=== PATIENT | female | born 1985 | race Caucasian/White ===

== ENCOUNTER 2017-03-27 16:32 | Emergency (ER) | payer MEDICAID, OTHER ==
[2017-03-27 17:26] VITALS: BP 128/80
--- NOTE | 2017-03-29 12:07 | ER ---
Date of Service: 03/27/2017 SUBJECTIVE: Trini presents to the emergency room with complaints of pain to the ball of her foot. The patient states that she had done a cartwheel and when landing the cartwheel injured the ball of her left foot. She states that the discomfort was located just proximal to the metatarsophalangeal joint. She states that she is not experiencing any discomfort to the remainder of the foot or to the ankle, lower leg, or knee. She denies any injury other than was isolated to the left foot. PAST MEDICAL HISTORY: 1. Depression. 2. Bipolar disorder. 3. Anxiety. 4. Migraine headaches. 5. GERD. 6. Hypertension. 7. Recent hospitalization at [facility] for suicidal and homicidal ideation and depression. MEDICATIONS: 1. Hydroxyzine. 2. BuSpar. 3. Omeprazole. 4. Mirtazapine. 5. Mobic. 6. Acetaminophen. 7. Prazosin. 8. Omeprazole. 9. Venlafaxine. 10.Topamax. 11.Phenergan. 12.Zanaflex. ALLERGIES: To gabapentin. REVIEW OF SYSTEMS: Denies any complaints other than pain to the ball of her left foot. Initially, the patient stated that she did not have any pain to the rest of her foot, ankle, lower leg, knee, and denies trauma to any other areas. PHYSICAL EXAMINATION: General: This is a 31-year-old female patient, who is in no acute distress. She is in the room with her friend laughing about the event. Vital Signs: Blood pressure is 128/80, heart rate is 91, temperature is 36.2, respiratory rate 16. Skin: Warm, pink, and dry. Musculoskeletal: The patient has minimal discomfort on palpation and manipulation of the ball of the foot and of the left great toe. No obvious crepitus or deformity noted. She initially had no other pain to the remainder of her foot, but then began experiencing discomfort in the area of the fifth metatarsal. No trauma noted to the ankle or lower leg or knee. Neurovascular: Circulation, sensation, and motor function are all within normal limits in distal portion of the extremity. RADIOGRAPHIC DATA: The radiologist favors a fracture to the midportion of the 4th metatarsal. She had no discomfort in the ball of the foot where she was initially complaining of pain. No other pathology was noted. ASSESSMENT: 1. Possible fracture to 4th metatarsal. 2. Sprain of left great toe. PLAN: The patient will be discharged. I did place her in a postop shoe. I advised her that she should follow up for repeat radiographs in 7-10 days to get a better picture of what specifically is going on. Again, she did not complain of any pain whatsoever in the area of the 4th metatarsal and complained of pain after she was told what the radiologist had noted. He did suggest that this was a possible fracture and did suggest clinical correlation, which initially did not match the radiographic findings. Again, we will have her follow up in the clinic for repeat radiographs in approximately 1 week. We will keep her in a postop shoe until then and treat it as though there is an acute fracture. All questions were answered. MWK: 03/29/2017 11:33:24 MODL: 03/29/2017 11:58:34 /[id number]
== END 2017-03-27 18:10 | disposition home or self-care (01) ==
LOC: VM.ED 16:32
DX: S93.502A Unspecified sprain of left great toe, initial encounter (principal); X58.XXXA Exposure to other specified factors, initial encounter
CPT/HCPCS: 73630-LT; 99283

== ENCOUNTER 2017-06-13 19:35 | Emergency (ER) | payer MEDICAID ==
[2017-06-13] MEDS ORDERED: Ketorolac 60 MG/2 ML SDV IM ONE (20:02)
[2017-06-13 20:13] VITALS: BP 122/81
[2017-06-13] MEDS ORDERED: Sodium Chloride 0.9% 10 ML Syringe FLUSH PRN (20:52)
[2017-06-13] MEDS ORDERED: Sodium Chloride 0.9% 1,000 ML IV ONE (20:54)
[2017-06-13] MEDS ORDERED: Morphine 4 MG/ML Syringe IVPUSH ONE (20:54)
[2017-06-13 20:57] LABS: CHLORIDE,CL 106 mmol/L (98-107); SODIUM,NA 142 mmol/L (136-145)
[2017-06-13] MEDS ORDERED: Iopamidol 612 MG/ML 100 ML Bottle IVPUSH ONE (21:15)
[2017-06-13] MEDS ORDERED: Sodium Chloride 0.9% 100 ML IV SCH (21:15)
[2017-06-13] MEDS ORDERED: Take Home: Acetaminophen/HYDROcodone 325-5 MG, 5 Tab Pack PO ONE (22:58)
--- NOTE | 2017-06-14 00:51 | ER ---
Date of Service: 06/13/2017 SUBJECTIVE: Trini presents to the emergency room with complaints of right upper quadrant abdominal pain. The patient states that she has been experiencing this discomfort for approximately 2 hours prior to coming to the ER. The patient states that she has never experienced this discomfort in the past. She states that she has not noticed any fer-colored stools or dark urine. The patient states that the discomfort is not radiating into either one of her shoulders. She states that her last intake of food was approximately noon today. The patient states that she has not been experiencing any fever or chills. She states her last menstrual period was approximately 1 week ago. She states that she has not been experiencing any dysuria or blood in her stools. PAST MEDICAL HISTORY: 1. Frequent utilization of the ER for migraine headaches. 2. Ventral hernia. 3. Anxiety. 4. Bipolar disorder. 5. Depression. 6. GERD. 7. Hypertension. 8. History of suicidal and homicidal ideation requiring psychiatric facility admission. MEDICATIONS: 1. Zanaflex 4 mg p.o. b.i.d. 2. Atarax 50 mg p.o. b.i.d. 3. Buspirone 15 mg p.o. b.i.d. 4. Effexor XR 24 hour 2 tablets p.o. at bedtime. 5. Topamax 100 mg p.o. b.i.d. 6. Promethazine 25 mg p.o. q.4 hours p.r.n. 7. Minipress 2 mg p.o. at bedtime. 8. Omeprazole 20 mg daily. 9. Mirtazapine 15 mg p.o. daily. 10.Mobic 7.5 mg p.o. daily. 11.Acetaminophen 500 mg p.o. q.i.d. p.r.n. ALLERGIES: Gabapentin. REVIEW OF SYSTEMS: General: No fever or chills. HEENT: No sore throat, rhinorrhea, congestion. Respiratory: No shortness of breath. Cardiac: Denies any substernal chest pain. No jaw, arm, neck, or back pain. GI: Please see history of present illness. No melena, hematochezia, or hematemesis. : Denies any dysuria. Musculoskeletal: No myalgias or arthralgias. Neurologic: No fainting, blackouts, lightheadedness. PHYSICAL EXAMINATION: General: This is a 32-year-old female patient, who is in no acute distress. Vital Signs: Blood pressure is 122/81, heart rate is 104, temperature is 37.4, respiratory rate 16, O2 saturations 99%. Skin: Warm, pale, and dry. Mouth: Oral mucosa is moist. Lungs: Clear to auscultation. Heart: Regular rate and rhythm. Abdomen: Soft, mildly tender in the right upper quadrant. There are no masses. She does have some rebound tenderness. There is no hepatosplenomegaly noted. Abdomen is obese. Extremities: Without edema. Neurologic: The patient is alert and oriented, answers all questions appropriately. Her speech is fluent. Her gait is within normal limits. LABORATORY DATA: WBCs 12.3, hemoglobin is 14.4, platelets are 261. Coags; PT is 10.4, INR is 1.0. Chemistry; sodium is 142, potassium is 3.6, chloride is 106, bicarb is 27, BUN is 8, creatinine is 0.9. Creatinine clearance is 65.65. GFR is greater than 60. Glucose is 102, calcium is 8.3, corrected calcium is 8.78. Total bilirubin is 0.4, AST is 35, ALT is 73. Alkaline phosphatase is 90, total protein is 7.7, albumin is 3.4, lipase is 157. Urinalysis revealed a specific gravity 1.030, pH was 5.0, negative for protein, glucose, ketones, occult blood, nitrites, bilirubin, and a leukocyte esterase. Abdomen complete series was obtained. There was no evidence of any acute pathology. On obtaining the patient's laboratory studies, a decision was made to do a CT scan of the patient's abdomen and pelvis. The patient did have evidence of thickening of the gallbladder wall and neural edema at the gallbladder neck as well as presence of gallstones within the gallbladder. There was no evidence of any free fluid or other inflammatory findings consistent with cholangitis. EMERGENCY ROOM COURSE: IV access was established. She was given a liter of normal saline IV. She was given Toradol 60 mg IM and morphine 4 mg IV. At the time of discharge, pain was down to 4. She remained stable under my care in the emergency room. ASSESSMENT: Acute cholecystitis and cholelithiasis. PLAN: The patient will be discharged. I did speak with Dr. Ahmeti, the general surgeon on-call at [facility] in [place]. He stated that the best bet would be to get her scheduled for a General Surgery consult on an outpatient basis tomorrow. We will work with [facility] to see if this can be done or to see if she will need to follow up with Dr. Neves who she identifies as her primary care provider. We will start the patient on Lortab 5/325 with instructions to take 1 to 2 every 4-6 hours as needed for pain. She can also take ibuprofen 600 mg every 6 hours but should not be taking her meloxicam at the same time. Dr. Alvarez advised the patient to go to [facility] on her own if her pain becomes unrelenting and is not palliated with oral narcotic analgesics. He stated that if they were unable to get her pain under control, they may do a semi-emergent cholecystectomy at [place]. The patient was given extensive list of foods to avoid including milk chews, carlos ham, and other fat containing foods. The patient stated that she would not be able to comply with this list of foods as "that is pretty much all the food I eat." She was advised to eat foods high in carbohydrates, fruits, vegetables, and to avoid fatty foods. All questions were answered. MWK: 06/13/2017 23:23:51 MODL: 06/14/2017 00:43:51 /[id number]
== END 2017-06-13 23:11 | disposition home or self-care (01) ==
LOC: VM.ED 19:35
DX: K80.00 Calculus of gallbladder with acute cholecystitis without obstruction (principal); F41.9 Anxiety disorder, unspecified; F32.9 Major depressive disorder, single episode, unspecified; K21.9 Gastro-esophageal reflux disease without esophagitis; I10 Essential (primary) hypertension; Z79.899 Other long term (current) drug therapy
CPT/HCPCS: 36415; 74022; 74177; 80053; 81001; 83690; 85025; 85610; 96365; 96372; 96375; 99284; A9270; J1885; J2270; J7030; J7050; Q9967

== ENCOUNTER 2018-03-26 08:43 | Emergency (ER) | payer MEDICAID ==
[2018-03-26 09:01] VITALS: BP 134/85
--- NOTE | 2018-03-26 09:24 | EDM.PDOC ---
ED HPI GENERAL MEDICAL PROBLEM - General Chief Complaint: Upper Extremity Injury/Pain Stated Complaint: ANIMAL BITE Time Seen by Provider: 03/26/18 09:09 Source of Information: Reports: Patient History Limitations: Reports: No Limitations - History of Present Illness INITIAL COMMENTS - FREE TEXT/NARRATIVE: Patient comes to the ED this morning after being bitten by a cat. She was trying to put it in the kennel. Not her original cat, but has been in the home since getting it in December. She states she was given the cat when it's original dedicated owner operator was sent to retirement. Bite to the right index finger. She is able to move it. Onset: Today, Sudden Location: Reports: Lower Extremity, Right Severity: Mild Associated Symptoms: Reports: No Other Symptoms Right 2-Index finger Pain Score (Numeric/FACES): 10 - Related Data Allergies Allergy/AdvReac Type Severity Reaction Status Date / Time gabapentin Allergy Headache Verified 06/13/17 19:56 levetiracetam [From [facility]] Allergy Hives Verified 03/26/18 08:56 Home Meds: Home Meds Topiramate [Topamax] 100 mg pe PO BID 01/20/15 [History] Venlafaxine [Effexor XR 24 Hr] 2 tab PO BEDTIME 08/19/15 [History] Omeprazole 20 mg PO ACBRK #30 cap.cr 10/27/15 [Rx] Prazosin [Minpress] 2 mg PO BEDTIME 09/16/16 [History] Acetaminophen 500 mg PO QID PRN 10/14/16 [History] Meloxicam [Mobic] 7.5 mg PO DAILY 10/14/16 [History] Promethazine [Phenergan] 25 mg PO Q4HR PRN 10/14/16 [History] tiZANidine [Zanaflex] 4 mg PO BID 10/14/16 [History] Mirtazapine 15 mg PO DAILY 03/27/17 [History] Omeprazole 20 mg DAILY 03/27/17 [History] busPIRone [Buspar] 15 mg BID 03/27/17 [History] hydrOXYzine HCl [Atarax] 50 mg BID 03/27/17 [History] Past Medical History HEENT History: Reports: Other (See Below) Other HEENT History: Patient has history of migraines. teeth extraction Cardiovascular History: Reports: Hypertension Other Cardiovascular History: Patient has history of hypertension and is on Toprol daily. BP upon admission was 111/65. Gastrointestinal History: Reports: Other (See Below) Other Gastrointestinal History: Patient has ventral hernia Genitourinary History: Reports: STD [employer] History: Reports: Other OB/BYN History: mother of 3 children Other Musculoskeletal History: shoulder pain Neurological History: Reports: Migraines Other Neuro History: Patient has history on migraines and sees Dr. Neves for her regular provider and does have an upcoming initial Neuro appointment in 2015. Psychiatric History: Reports: Depression Endocrine/Metabolic History: Reports: Obesity/BMI 30+ - Past Surgical History HEENT Surgical History: Reports: Other (See Below) Other HEENT Surgeries/Procedures: Teeth removed Female Surgical History: Reports: Tubal Ligation Social & Family History - Family History Family Medical History: Noncontributory - Tobacco Use Smoking Status *Q: Current Every Day Smoker Years of Tobacco use: 2 Packs/Tins Daily: 0.5 Used Tobacco, but Quit: No Second Hand Smoke Exposure: No - Alcohol Use Days Per Week of Alcohol Use: 0 - Recreational Drug Use Recreational Drug Use: No Review of Systems - Review of Systems Review Of Systems: See Below Constitutional: Reports: No Symptoms Eyes: Reports: No Symptoms Ears: Reports: No Symptoms Nose: Reports: No Symptoms Mouth/Throat: Reports: No Symptoms Respiratory: Reports: No Symptoms Cardiovascular: Reports: No Symptoms GI/Abdominal: Reports: No Symptoms Genitourinary: Reports: No Symptoms Musculoskeletal: Reports: Other (finger pain(right index)) Skin: Reports: Wound (cat bite) Neurological: Reports: No Symptoms Psychiatric: Reports: No Symptoms ED EXAM, GENERAL - Physical Exam Exam: See Below Exam Limited By: No Limitations General Appearance: Alert, WD/WN, Mild Distress Respiratory/Chest: No Respiratory Distress, Lungs Clear, Normal Breath Sounds, No Accessory Muscle Use, Chest Non-Tender Cardiovascular: Normal Peripheral Pulses, Regular Rate, Rhythm, No Edema, No Gallop, No JVD, No Murmur, No Rub Extremities: Normal Range of Motion, Other (finger does have swelling) Neurological: Alert, Oriented, CN II-XII Intact, Normal Cognition, Normal Gait, Normal Reflexes, No Motor/Sensory Deficits Psychiatric: Normal Affect, Normal Mood Skin Exam: Wound/Incision (several puncture sites to right index finger near the fingernail) Lymphatic: No Adenopathy Course - Vital Signs Last Recorded V/S: Last Vital Signs Temp 36.3 C 03/26/18 08:45 Pulse 100 03/26/18 08:45 Resp 16 03/26/18 08:45 BP 134/85 03/26/18 08:45 Pulse Ox Departure - Departure Time of Disposition: 09:26 Disposition: Home, Self-Care 01 Condition: Good Clinical Impression: Cat bite of finger - Discharge Information Instructions: Animal Bite, [id number] Additional Instructions: Please finish the course of antibiotics unless you have an adverse reaction to it. Follow up with your primary provider in 7-10 days. I am giving you a prescription for augmentin for 10 days. Keep and quarantine the cat for the next 10 days or send it to the vet until you can be sure it does not have rabies. If you notice any new and recent odd behavior from the cat in the next 10 days you should come back to the ER for a rabies series. Use ibuprofen and tylenol for pain and swelling of your finger. Please call us with any questions or concerns - Problem List & Annotations (1) Cat bite of finger SNOMED Code(s): 746039631 Code(s): S61.259A - OPEN BITE OF UNSP FINGER WITHOUT DAMAGE TO NAIL, INIT ENCNTR; W55.01XA - BITTEN BY CAT, INITIAL ENCOUNTER Status: Acute Priority: Medium Qualifiers: Encounter type: initial encounter Qualified Code(s): S61.259A - Open bite of unspecified finger without damage to nail, initial encounter; W55.01XA - Bitten by cat, initial encounter - Problem List Review Problem List Initiated/Reviewed/Updated: Yes - Assessment/Plan Assessment:: cat bite right index finger Plan: Please finish the course of antibiotics unless you have an adverse reaction to it. Follow up with your primary provider in 7-10 days. I am giving you a prescription for augmentin for 10 days. Keep and quarantine the cat for the next 10 days or send it to the vet until you can be sure it does not have rabies. If you notice any new and recent odd behavior from the cat in the next 10 days you should come back to the ER for a rabies series. Use ibuprofen and tylenol for pain and swelling of your finger. Please call us with any questions or concerns
== END 2018-03-26 09:30 | disposition home or self-care (01) ==
LOC: VM.ED 08:43
DX: S61.250A Open bite of right index finger without damage to nail, initial encounter (principal); I10 Essential (primary) hypertension; F17.210 Nicotine dependence, cigarettes, uncomplicated; Z88.8 Allergy status to other drugs, medicaments and biological substances; Z79.899 Other long term (current) drug therapy; W55.01XA Bitten by cat, initial encounter
CPT/HCPCS: 99283

== ENCOUNTER 2025-02-14 04:45 | Emergency (ER) | payer MEDICAID, MEDICARE ==
[2025-02-14 05:13] LABS: APPEARANCE,URINE SLIGHTLY CLOUDY (CLEAR); BILIRUBIN,URINE SMALL (NEGATIVE); COLOR,URINE DARK YELLOW (YELLOW); GLUCOSE,URINE NEGATIVE (NEGATIVE); KETONES,URINE NEGATIVE (NEGATIVE); LEUKOCYTE ESTERASE,URINE SMALL (NEGATIVE); NITRITE,URINE NEGATIVE (NEGATIVE); OCCULT BLOOD,URINE TRACE-INTACT (NEGATIVE); PH,URINE 6.5 (5.0-8.0); PROTEIN,URINE 30 mg/dL (NEGATIVE); UROBILINOGEN,URINE >=8.0 EU/dL (0.2)
[2025-02-14 05:16] LABS: BASOPHILS PERCENT AUTO 0.1 % (0.2-1.2); EOSINOPHILS ABSOLUTE AUTO 0.1 x10^3/uL (0.0-0.5); EOSINOPHILS PERCENT AUTO 0.7 % (0.0-4.0); HEMATOCRIT 38.2 % (33.0-47.0); HEMOGLOBIN 12.9 g/dL (12.0-16.0); IMMATURE GRAN ABSOLUTE AUTO 0.05 x10^3/uL (0.00-0.07); LYMPHOCYTES ABSOLUTE AUTO 1.9 x10^3/uL (1.0-4.8); LYMPHOCYTES PERCENT AUTO 11.7 % (25.0-50.0); MEAN CORPUSCULAR HEMOGLOBIN 30.6 pg (26.0-32.0); MEAN CORPUSCULAR HGB CONC 33.8 g/dL (32.0-36.0); MEAN CORPUSCULAR VOLUME 90.5 fL (78.0-93.0); MONOCYTES PERCENT AUTO 6.3 % (2.0-11.0); NEUTROPHILS ABSOLUTE AUTO 13.2 x10^3/uL (1.8-7.7); NEUTROPHILS PERCENT AUTO 80.9 % (50.0-80.0); PLATELET COUNT,PLT 278 x10^3/uL (130-400); RED BLOOD CELL COUNT 4.22 x10^6/uL (4.00-5.50); WHITE BLOOD CELL COUNT,WBC 16.3 x10^3/uL (4.0-10.0)
[2025-02-14 05:22] LABS: BACTERIA,URINE FEW /HPF (NOT SEEN); RBC,URINE 0-5 /HPF (NOT SEEN); SQUAMOUS EPITHELIAL CELLS,UR FEW /HPF (NOT SEEN)
[2025-02-14 05:32] LABS: A/G RATIO 0.63; ALBUMIN 3.1 g/dL (3.4-5.0); ANION GAP 15.2 mmol/L (5-15); CALCIUM 7.7 mg/dL (8.5-10.1); CREATININE 1.1 mg/dL (0.55-1.02); EST CRCL DRUG DOSING (CG) 50.3 mL/min; POTASSIUM,K 3.2 mmol/L (3.5-5.1)
[2025-02-14] MEDS: Iopamidol 612 MG/ML 100 ML Bottle IVPUSH ONE (07:21)
[2025-02-14 09:03] VITALS: BP 103/55; PULSE 77
== END 2025-02-14 11:26 | disposition home or self-care (01) ==
LOC: VM.ED 04:45
DX: N15.1 Renal and perinephric abscess (principal); I10 Essential (primary) hypertension; Z88.8 Allergy status to other drugs, medicaments and biological substances; Z79.51 Long term (current) use of inhaled steroids; Z79.899 Other long term (current) drug therapy
CPT/HCPCS: 36415; 74176; 74177; 80053; 81001; 81025; 83690; 85025; 99284; Q9967